=== PATIENT | female | born 1975 | race Caucasian/White ===

== ENCOUNTER 2019-02-13 21:57 | Emergency (ER) | payer OTHER ==
[~2019-02-13] VITALS: Ht 162.6 cm; Wt 68.9 kg
[2019-02-13] MEDS ORDERED: ADIPEX-P37.5 MG PO (22:08)
[2019-02-13] MEDS ORDERED: MICROZIDE12.5 MG PO (22:08)
[2019-02-13] MEDS ORDERED: ADIPEX-P37.5 M1 PO (22:08)
[2019-02-13] MEDS ORDERED: CLONAZEPAM0.125 MG PO (22:09)
== END 2019-02-14 23:56 | disposition home or self-care (01) ==
LOC: ER 21:57
DX: D50.0 Iron deficiency anemia secondary to blood loss (chronic) (principal); N92.0 Excessive and frequent menstruation with regular cycle; D25.1 Intramural leiomyoma of uterus
CPT/HCPCS: 36430 ×2; 86430 ×2; 86922 ×2; P9021 ×2